=== PATIENT | female | born 1930 | race Caucasian/White ===

== ENCOUNTER → 2017-06-10 | Outpatient (REF) ==
[2017-06-10 10:46] LABS: HEMATOCRIT 26.1 % (36.0-47.0); HEMOGLOBIN 7.9 g/dl (12.0-15.5); MEAN CORPUSCULAR HEMOGLOBIN 26.2 pg (27.0-33.0); MEAN CORPUSCULAR HGB CONC 30.3 g/dl (32.0-36.5); MEAN CORPUSCULAR VOLUME 86.7 fl (80.0-96.0); PLATELET COUNT, AUTOMATED 300 10^3/uL (150-450); RED BLOOD COUNT 3.01 10^6/uL (4.00-5.40); RED CELL DISTRIBUTION WIDTH 18.6 % (11.5-14.5); WHITE BLOOD COUNT 7.8 10^3/uL (4.0-10.0)
[2017-06-10 17:54] LABS: FERRITIN 361 NG/ML (8-252); IRON (FE) 40 UG/DL (50-170); PERCENT SATURATION 13.3 % (13.2-45.0); TOTAL IRON BINDING CAPACITY 300 UG/DL (250-450)
== END ==
DX: D64.9 Anemia, unspecified (principal)

== ENCOUNTER 2017-06-13 09:21 | Outpatient (REF) ==
[2017-06-14 13:38] LABS: HEMOGLOBIN 8.9 g/dl (12.0-15.5); MEAN CORPUSCULAR HEMOGLOBIN 26.2 pg (27.0-33.0); MEAN CORPUSCULAR HGB CONC 29.7 g/dl (32.0-36.5); MEAN CORPUSCULAR VOLUME 88.2 fl (80.0-96.0); PLATELET COUNT, AUTOMATED 327 10^3/uL (150-450); RED CELL DISTRIBUTION WIDTH 19.9 % (11.5-14.5); WHITE BLOOD COUNT 7.8 10^3/uL (4.0-10.0)
== END 2017-06-14 ==
DX: D64.9 Anemia, unspecified (principal)

== ENCOUNTER → 2017-07-05 | Outpatient (REF) ==
[2017-07-05 09:22] LABS: HEMATOCRIT 29.3 % (36.0-47.0); HEMOGLOBIN 8.9 g/dl (12.0-15.5); MEAN CORPUSCULAR HGB CONC 30.4 g/dl (32.0-36.5); MEAN CORPUSCULAR VOLUME 88.8 fl (80.0-96.0); PLATELET COUNT, AUTOMATED 231 10^3/uL (150-450); RED CELL DISTRIBUTION WIDTH 19.6 % (11.5-14.5); WHITE BLOOD COUNT 5.4 10^3/uL (4.0-10.0)
[2017-07-05 10:12] LABS: ANION GAP 6 MEQ/L (8-16); BLOOD UREA NITROGEN 18 MG/DL (7-18); CALCIUM LEVEL 9.8 MG/DL (8.8-10.2); CARBON DIOXIDE LEVEL 31 MEQ/L (21-32); CHLORIDE LEVEL 107 MEQ/L (98-107); CREATININE FOR GFR 1.08 MG/DL (0.55-1.30); GLOMERULAR FILTRATION RATE 51.5 (>32); GLUCOSE, FASTING 85 MG/DL (70-100); POTASSIUM SERUM 3.4 MEQ/L (3.5-5.1); SODIUM LEVEL 144 MEQ/L (136-145)
== END ==
DX: D64.9 Anemia, unspecified (principal)

== ENCOUNTER 2017-07-12 10:31 | Inpatient (IN) | payer MEDICARE, BC, OTHER ==
[2017-07-12] MEDS: amLODIPine 10 MG TAB PO (09:00)
[2017-07-12] MEDS: IPRATROPIUM 0.5MG/ALBUTEROL 2.5MG INH SOL UD 3ML (DUONEB)(J7620) NEB (10:58)
[2017-07-12] MEDS: ALBUTEROL SULFATE 2.5 MG/0.5 ML INH NEB SOLN INH (10:58)
[2017-07-12 11:25] LABS: BASO % 0.5 % (0.0-1.0); EOS # 0.1 10^3/uL (0.0-0.50); EOS % 1.9 % (0.0-3.0); HEMATOCRIT 28.6 % (36.0-47.0); HEMOGLOBIN 8.8 g/dl (12.0-15.5); IMMATURE GRANULOCYTE % 0.5 % (0-3.0); LYMPH % 34.4 % (24.0-44.0); MEAN CORPUSCULAR HEMOGLOBIN 26.7 pg (27.0-33.0); MEAN CORPUSCULAR HGB CONC 30.8 g/dl (32.0-36.5); MEAN CORPUSCULAR VOLUME 86.9 fl (80.0-96.0); MONO # 0.4 10^3/uL (0.0-0.8); MONO % 6.2 % (0.0-5.0); NEUTROPHILS # 3.3 10^3/uL (1.8-7.7); NEUTROPHILS % 56.5 % (36.0-66.0); PLATELET COUNT, AUTOMATED 241 10^3/uL (150-450); RED BLOOD COUNT 3.29 10^6/uL (4.00-5.40); WHITE BLOOD COUNT 5.8 10^3/uL (4.0-10.0)
[2017-07-12 12:00] LABS: ALBUMIN/GLOBULIN RATIO 0.67 (1.00-1.93); ALKALINE PHOSPHATASE 105 U/L (45-117); ALT/SGPT 16 U/L (12-78); ANION GAP 6 MEQ/L (8-16); AST/SGOT 26 U/L (7-37); BILIRUBIN,DIRECT < 0.1 MG/DL (0.0-0.2); BILIRUBIN,TOTAL 0.3 MG/DL (0.2-1.0); BLOOD UREA NITROGEN 18 MG/DL (7-18); CALCIUM LEVEL 9.4 MG/DL (8.8-10.2); CARBON DIOXIDE LEVEL 27 MEQ/L (21-32); CHLORIDE LEVEL 109 MEQ/L (98-107); CPK CREATINE PHOSPHOKINASE 20 U/L (26-192); FREE T4 0.98 NG/DL (0.76-1.46); GLOMERULAR FILTRATION RATE 50.4 (>32); GLUCOSE, FASTING 126 MG/DL (70-100); LIPASE 165 U/L (73-393); POTASSIUM SERUM 3.4 MEQ/L (3.5-5.1); SODIUM LEVEL 142 MEQ/L (136-145); TOTAL PROTEIN 7.5 GM/DL (6.4-8.2); TROPONIN I < 0.02 NG/ML (< 0.10)
[2017-07-12 12:06] LABS: CK-MB VALUE MASS < 1.0 NG/ML (<3.6); NT-PRO BNP 2228 PG/ML (<450)
[2017-07-12] MEDS: LevoFLOXacin IV 750 MG in APPROPRIATE DILUENT 1 EA IV (14:06)
[2017-07-12] MEDS: FUROSEMIDE 20 MG/2 ML VIAL (J1940) IV (14:14)
[2017-07-12] MEDS ORDERED: MOM 30ML SUSPENSION UDC PO (14:45)
[2017-07-12] MEDS ORDERED: FLEET ENEMA PR (14:45)
[2017-07-12] MEDS ORDERED: BISACODYL 10 MG SUPP PR (14:45)
[2017-07-12] MEDS ORDERED: ACETAMINOPHEN 325 MG TAB PO (14:45)
[2017-07-12 16:43] LABS: ESTIMATED AVERAGE GLUCOSE 82 MG/DL (60-110); HEMOGLOBIN A1c 4.5 %
[2017-07-12] MEDS: HEPARIN SOD (PORCINE) 5000 UNITS/ML VIAL SC ×2 (16:53→22:51)
[2017-07-12] MEDS: ALLOPURINOL 300 MG TAB PO (16:54)
[2017-07-12] MEDS: POTASSIUM CHLORIDE 10 MEQ SR TABLET PO (16:54)
[2017-07-12] MEDS: LISINOPRIL 40 MG TAB PO (16:54)
[2017-07-12] MEDS: DULoxetine 30 MG CAP (CYMBALTA) PO (16:55)
[2017-07-12] MEDS: VITAMIN D 1,000 INTERNATIONAL UNITS TABLET PO (16:55)
[2017-07-12] MEDS: ASPIRIN 81 MG ENTERIC TAB PO (20:43)
[2017-07-12] MEDS: OMEPRAZOLE 20 MG CAP PO (20:43)
[2017-07-12] MEDS: METOPROLOL SUCC *XL* 25MG TAB (TopROL *XL*) PO (20:44)
[2017-07-12] MEDS: POLYVINYL ALCOHOL OPHTH SOLN 15 ML(LIQUITEARS) OU (20:50)
[2017-07-12] MEDS: LATANOPROST 0.005% OPHTH SOLN 2.5 ML OU (20:50)
[2017-07-13] MEDS: FUROSEMIDE 40 MG/4 ML VIAL (J1940) IV ×3 (00:11→16:09)
[2017-07-13 05:25] LABS: HEMATOCRIT 29.4 % (36.0-47.0); HEMOGLOBIN 8.8 g/dl (12.0-15.5); MEAN CORPUSCULAR HEMOGLOBIN 26.1 pg (27.0-33.0); MEAN CORPUSCULAR HGB CONC 29.9 g/dl (32.0-36.5); MEAN CORPUSCULAR VOLUME 87.2 fl (80.0-96.0); PLATELET COUNT, AUTOMATED 221 10^3/uL (150-450); RED BLOOD COUNT 3.37 10^6/uL (4.00-5.40); WHITE BLOOD COUNT 6.2 10^3/uL (4.0-10.0)
[2017-07-13 05:46] LABS: ANION GAP 5 MEQ/L (8-16); BLOOD UREA NITROGEN 23 MG/DL (7-18); CALCIUM LEVEL 9.7 MG/DL (8.8-10.2); CARBON DIOXIDE LEVEL 32 MEQ/L (21-32); CHLORIDE LEVEL 107 MEQ/L (98-107); GLOMERULAR FILTRATION RATE 41.5 (>32); GLUCOSE, FASTING 91 MG/DL (70-100); MAGNESIUM LEVEL 1.7 MG/DL (1.8-2.4); POTASSIUM SERUM 3.9 MEQ/L (3.5-5.1); SODIUM LEVEL 144 MEQ/L (136-145)
[2017-07-13 05:50] LABS: FERRITIN 48 NG/ML (8-252); IRON (FE) 26 UG/DL (50-170); PERCENT SATURATION 7.6 % (13.2-45.0); TOTAL IRON BINDING CAPACITY 343 UG/DL (250-450)
[2017-07-13] MEDS: HEPARIN SOD (PORCINE) 5000 UNITS/ML VIAL SC ×3 (05:50→22:05)
[2017-07-13] MEDS: ASPIRIN 81 MG ENTERIC TAB PO ×2 (08:13→22:03)
[2017-07-13] MEDS: VITAMIN D 1,000 INTERNATIONAL UNITS TABLET PO (08:13)
[2017-07-13] MEDS: amLODIPine 10 MG TAB PO (08:13)
[2017-07-13] MEDS: DULoxetine 30 MG CAP (CYMBALTA) PO (08:13)
[2017-07-13] MEDS: LISINOPRIL 40 MG TAB PO (08:13)
[2017-07-13] MEDS: METOPROLOL SUCC *XL* 25MG TAB (TopROL *XL*) PO ×2 (08:13→22:05)
[2017-07-13] MEDS: ALLOPURINOL 300 MG TAB PO (08:14)
[2017-07-13] MEDS: POLYVINYL ALCOHOL OPHTH SOLN 15 ML(LIQUITEARS) OU ×2 (08:14→22:05)
[2017-07-13 08:58] LABS: FOLATE 8.6 NG/ML (>5.4)
[2017-07-13] MEDS ORDERED: FUROSEMIDE 40 MG TAB PO (09:00)
[2017-07-13 09:03] LABS: VITAMIN B12 LEVEL 305 PG/ML (247-911)
[2017-07-13] MEDS: TUBERCULIN PPD 5 UNITS/0.1 ML ID (16:00)
[2017-07-13] MEDS: MAG SULF 1GM/100ML (MAG RUN) 1 GM in APPROPRIATE DILUENT 1 EA IV ×2 (17:23→18:26)
[2017-07-13] MEDS: OMEPRAZOLE 20 MG CAP PO (22:04)
[2017-07-13] MEDS: LATANOPROST 0.005% OPHTH SOLN 2.5 ML OU (22:05)
[2017-07-14] MEDS: FUROSEMIDE 40 MG/4 ML VIAL (J1940) IV ×2 (01:17→12:49)
[2017-07-14 05:53] LABS: HEMATOCRIT 30.8 % (36.0-47.0); HEMOGLOBIN 9.4 g/dl (12.0-15.5); MEAN CORPUSCULAR HEMOGLOBIN 26.6 pg (27.0-33.0); MEAN CORPUSCULAR HGB CONC 30.5 g/dl (32.0-36.5); PLATELET COUNT, AUTOMATED 211 10^3/uL (150-450); RED BLOOD COUNT 3.54 10^6/uL (4.00-5.40); RED CELL DISTRIBUTION WIDTH 18.7 % (11.5-14.5); WHITE BLOOD COUNT 5.2 10^3/uL (4.0-10.0)
[2017-07-14 06:16] LABS: ANION GAP 5 MEQ/L (8-16); BLOOD UREA NITROGEN 27 MG/DL (7-18); CALCIUM LEVEL 9.8 MG/DL (8.8-10.2); CARBON DIOXIDE LEVEL 31 MEQ/L (21-32); CHLORIDE LEVEL 105 MEQ/L (98-107); CREATININE FOR GFR 1.33 MG/DL (0.55-1.30); GLOMERULAR FILTRATION RATE 40.5 (>32); GLUCOSE, FASTING 90 MG/DL (70-100); MAGNESIUM LEVEL 2.4 MG/DL (1.8-2.4); POTASSIUM SERUM 3.4 MEQ/L (3.5-5.1); SODIUM LEVEL 141 MEQ/L (136-145)
[2017-07-14] MEDS: HEPARIN SOD (PORCINE) 5000 UNITS/ML VIAL SC ×3 (06:50→21:35)
[2017-07-14] MEDS: POLYVINYL ALCOHOL OPHTH SOLN 15 ML(LIQUITEARS) OU ×2 (09:00→21:23)
[2017-07-14] MEDS: ALLOPURINOL 300 MG TAB PO (09:08)
[2017-07-14] MEDS: VITAMIN D 1,000 INTERNATIONAL UNITS TABLET PO (09:08)
[2017-07-14] MEDS: LISINOPRIL 40 MG TAB PO (09:08)
[2017-07-14] MEDS: DULoxetine 30 MG CAP (CYMBALTA) PO (09:09)
[2017-07-14] MEDS: ASPIRIN 81 MG ENTERIC TAB PO ×2 (09:09→21:22)
[2017-07-14] MEDS: amLODIPine 10 MG TAB PO (09:11)
[2017-07-14] MEDS: POTASSIUM CHLORIDE 10 MEQ SR TABLET PO (09:11)
[2017-07-14] MEDS: METOPROLOL SUCC *XL* 25MG TAB (TopROL *XL*) PO ×2 (09:12→21:23)
[2017-07-14] MEDS ORDERED: diphenhydrAMINE 25 MG CAP PO (18:30)
[2017-07-14] MEDS: OMEPRAZOLE 20 MG CAP PO (21:22)
[2017-07-14] MEDS: LATANOPROST 0.005% OPHTH SOLN 2.5 ML OU (21:23)
[2017-07-15 05:55] LABS: HEMATOCRIT 27.8 % (36.0-47.0); HEMOGLOBIN 8.4 g/dl (12.0-15.5); MEAN CORPUSCULAR HEMOGLOBIN 26.4 pg (27.0-33.0); MEAN CORPUSCULAR HGB CONC 30.2 g/dl (32.0-36.5); MEAN CORPUSCULAR VOLUME 87.4 fl (80.0-96.0); PLATELET COUNT, AUTOMATED 206 10^3/uL (150-450); RED BLOOD COUNT 3.18 10^6/uL (4.00-5.40); RED CELL DISTRIBUTION WIDTH 18.8 % (11.5-14.5); WHITE BLOOD COUNT 5.5 10^3/uL (4.0-10.0)
[2017-07-15 06:14] LABS: ANION GAP 5 MEQ/L (8-16); BLOOD UREA NITROGEN 30 MG/DL (7-18); CALCIUM LEVEL 9.3 MG/DL (8.8-10.2); CARBON DIOXIDE LEVEL 30 MEQ/L (21-32); CHLORIDE LEVEL 106 MEQ/L (98-107); CREATININE FOR GFR 1.42 MG/DL (0.55-1.30); GLOMERULAR FILTRATION RATE 37.5 (>32); GLUCOSE, FASTING 94 MG/DL (70-100); MAGNESIUM LEVEL 2.4 MG/DL (1.8-2.4); POTASSIUM SERUM 4.1 MEQ/L (3.5-5.1); SODIUM LEVEL 141 MEQ/L (136-145)
[2017-07-15] MEDS: HEPARIN SOD (PORCINE) 5000 UNITS/ML VIAL SC ×3 (06:46→21:53)
[2017-07-15] MEDS: ASPIRIN 81 MG ENTERIC TAB PO ×2 (09:00→21:51)
[2017-07-15] MEDS: VITAMIN D 1,000 INTERNATIONAL UNITS TABLET PO (09:30)
[2017-07-15] MEDS: amLODIPine 10 MG TAB PO (09:31)
[2017-07-15] MEDS: LISINOPRIL 40 MG TAB PO (09:31)
[2017-07-15] MEDS: POLYVINYL ALCOHOL OPHTH SOLN 15 ML(LIQUITEARS) OU ×2 (09:31→21:52)
[2017-07-15] MEDS: ALLOPURINOL 300 MG TAB PO (09:31)
[2017-07-15] MEDS: DULoxetine 30 MG CAP (CYMBALTA) PO (09:31)
[2017-07-15] MEDS: METOPROLOL SUCC *XL* 25MG TAB (TopROL *XL*) PO ×2 (09:31→21:52)
[2017-07-15] MEDS ORDERED: fentaNYL 100 MCG/2 ML INJECTION (J3010) As Ordered (14:19)
[2017-07-15] MEDS ORDERED: PROPOFOL 200 MG/20 ML VIAL As Ordered ×2 (14:20→15:15)
[2017-07-15] MEDS ORDERED: LIDOCAINE 2% INJ 100 MG/5 ML SDV (FOR ANES.) As Ordered (14:20)
[2017-07-15] MEDS: LIDOCAINE VISCOUS 2% SOLN 15ML UDC As Ordered (14:57)
[2017-07-15] MEDS ORDERED: PPD DOCUMENTATION ENTRY MISC XX (16:00)
[2017-07-15] MEDS ORDERED: ONDANSETRON 4MG/2ML VIAL (J2405) IV (16:00)
[2017-07-15] MEDS: LR 1,000 ML IV (16:00)
[2017-07-15] MEDS: OMEPRAZOLE 20 MG CAP PO (21:51)
[2017-07-15] MEDS: LATANOPROST 0.005% OPHTH SOLN 2.5 ML OU (21:52)
[2017-07-15] MEDS: NS 1,000 ML IV (23:29)
[2017-07-16 05:04] LABS: HEMATOCRIT 26.3 % (36.0-47.0); HEMOGLOBIN 7.8 g/dl (12.0-15.5); MEAN CORPUSCULAR HEMOGLOBIN 26.3 pg (27.0-33.0); MEAN CORPUSCULAR HGB CONC 29.7 g/dl (32.0-36.5); MEAN CORPUSCULAR VOLUME 88.6 fl (80.0-96.0); PLATELET COUNT, AUTOMATED 179 10^3/uL (150-450); RED BLOOD COUNT 2.97 10^6/uL (4.00-5.40); RED CELL DISTRIBUTION WIDTH 19.1 % (11.5-14.5); WHITE BLOOD COUNT 5.3 10^3/uL (4.0-10.0)
[2017-07-16 05:26] LABS: ANION GAP 4 MEQ/L (8-16); BLOOD UREA NITROGEN 28 MG/DL (7-18); CALCIUM LEVEL 9.4 MG/DL (8.8-10.2); CARBON DIOXIDE LEVEL 31 MEQ/L (21-32); CHLORIDE LEVEL 109 MEQ/L (98-107); CREATININE FOR GFR 1.21 MG/DL (0.55-1.30); GLOMERULAR FILTRATION RATE 45.1 (>32); GLUCOSE, FASTING 103 MG/DL (70-100); MAGNESIUM LEVEL 2.4 MG/DL (1.8-2.4); POTASSIUM SERUM 3.8 MEQ/L (3.5-5.1); SODIUM LEVEL 144 MEQ/L (136-145)
[2017-07-16] MEDS: HEPARIN SOD (PORCINE) 5000 UNITS/ML VIAL SC ×3 (07:09→20:47)
[2017-07-16] MEDS: amLODIPine 10 MG TAB PO (09:38)
[2017-07-16] MEDS: DULoxetine 30 MG CAP (CYMBALTA) PO (09:38)
[2017-07-16] MEDS: METOPROLOL SUCC *XL* 25MG TAB (TopROL *XL*) PO ×2 (09:38→20:39)
[2017-07-16] MEDS: VITAMIN D 1,000 INTERNATIONAL UNITS TABLET PO (09:38)
[2017-07-16] MEDS: ASPIRIN 81 MG ENTERIC TAB PO ×2 (09:38→20:41)
[2017-07-16] MEDS: POLYVINYL ALCOHOL OPHTH SOLN 15 ML(LIQUITEARS) OU ×2 (09:39→20:41)
[2017-07-16 12:38] LABS: HEMATOCRIT 27.4 % (36.0-47.0); HEMOGLOBIN 8.3 g/dl (12.0-15.5)
[2017-07-16] MEDS: OMEPRAZOLE 20 MG CAP PO (20:39)
[2017-07-16] MEDS: LATANOPROST 0.005% OPHTH SOLN 2.5 ML OU (20:41)
[2017-07-17] MEDS: HEPARIN SOD (PORCINE) 5000 UNITS/ML VIAL SC ×3 (06:00→22:00)
[2017-07-17 06:48] LABS: HEMATOCRIT 27.4 % (36.0-47.0); HEMOGLOBIN 8.3 g/dl (12.0-15.5); MEAN CORPUSCULAR HEMOGLOBIN 26.7 pg (27.0-33.0); MEAN CORPUSCULAR HGB CONC 30.3 g/dl (32.0-36.5); MEAN CORPUSCULAR VOLUME 88.1 fl (80.0-96.0); PLATELET COUNT, AUTOMATED 195 10^3/uL (150-450); RED BLOOD COUNT 3.11 10^6/uL (4.00-5.40); RED CELL DISTRIBUTION WIDTH 18.8 % (11.5-14.5); WHITE BLOOD COUNT 5.5 10^3/uL (4.0-10.0)
[2017-07-17 07:11] LABS: ANION GAP 7 MEQ/L (8-16); BLOOD UREA NITROGEN 20 MG/DL (7-18); CALCIUM LEVEL 9.2 MG/DL (8.8-10.2); CARBON DIOXIDE LEVEL 28 MEQ/L (21-32); CHLORIDE LEVEL 108 MEQ/L (98-107); CREATININE FOR GFR 1.02 MG/DL (0.55-1.30); GLUCOSE, FASTING 98 MG/DL (70-100); MAGNESIUM LEVEL 2.3 MG/DL (1.8-2.4); POTASSIUM SERUM 3.8 MEQ/L (3.5-5.1); SODIUM LEVEL 143 MEQ/L (136-145)
[2017-07-17] MEDS: DULoxetine 30 MG CAP (CYMBALTA) PO (09:03)
[2017-07-17] MEDS: ASPIRIN 81 MG ENTERIC TAB PO ×2 (09:03→22:15)
[2017-07-17] MEDS: VITAMIN D 1,000 INTERNATIONAL UNITS TABLET PO (09:03)
[2017-07-17] MEDS: POLYVINYL ALCOHOL OPHTH SOLN 15 ML(LIQUITEARS) OU ×2 (09:03→22:15)
[2017-07-17] MEDS: METOPROLOL SUCC *XL* 25MG TAB (TopROL *XL*) PO ×2 (09:04→22:15)
[2017-07-17] MEDS: amLODIPine 10 MG TAB PO (09:04)
[2017-07-17] MEDS: ALLOPURINOL 300 MG TAB PO (09:06)
[2017-07-17] MEDS: LISINOPRIL 40 MG TAB PO (09:06)
[2017-07-17] MEDS: ALPRAZolam 0.25 MG TAB PO (12:15)
[2017-07-17] MEDS: LATANOPROST 0.005% OPHTH SOLN 2.5 ML OU (22:15)
[2017-07-17] MEDS: OMEPRAZOLE 20 MG CAP PO (22:15)
[2017-07-18] MEDS: HEPARIN SOD (PORCINE) 5000 UNITS/ML VIAL SC ×2 (05:24→13:24)
[2017-07-18 06:27] LABS: HEMATOCRIT 27.1 % (36.0-47.0); HEMOGLOBIN 8.1 g/dl (12.0-15.5); MEAN CORPUSCULAR HEMOGLOBIN 26.4 pg (27.0-33.0); MEAN CORPUSCULAR HGB CONC 29.9 g/dl (32.0-36.5); MEAN CORPUSCULAR VOLUME 88.3 fl (80.0-96.0); PLATELET COUNT, AUTOMATED 182 10^3/uL (150-450); RED BLOOD COUNT 3.07 10^6/uL (4.00-5.40)
[2017-07-18 06:43] LABS: ANION GAP 4 MEQ/L (8-16); BLOOD UREA NITROGEN 16 MG/DL (7-18); CALCIUM LEVEL 9.3 MG/DL (8.8-10.2); CARBON DIOXIDE LEVEL 30 MEQ/L (21-32); CHLORIDE LEVEL 107 MEQ/L (98-107); CREATININE FOR GFR 1.04 MG/DL (0.55-1.30); GLOMERULAR FILTRATION RATE 53.7 (>32); GLUCOSE, FASTING 100 MG/DL (70-100); MAGNESIUM LEVEL 2.4 MG/DL (1.8-2.4); POTASSIUM SERUM 3.8 MEQ/L (3.5-5.1); SODIUM LEVEL 141 MEQ/L (136-145)
[2017-07-18] MEDS: METOPROLOL SUCC *XL* 25MG TAB (TopROL *XL*) PO (09:27)
[2017-07-18] MEDS: amLODIPine 10 MG TAB PO (09:27)
[2017-07-18] MEDS: ALLOPURINOL 300 MG TAB PO (09:27)
[2017-07-18] MEDS: LISINOPRIL 40 MG TAB PO (09:27)
[2017-07-18] MEDS: DULoxetine 30 MG CAP (CYMBALTA) PO (09:27)
[2017-07-18] MEDS: VITAMIN D 1,000 INTERNATIONAL UNITS TABLET PO (09:27)
[2017-07-18] MEDS: ASPIRIN 81 MG ENTERIC TAB PO (09:28)
[2017-07-18] MEDS: POLYVINYL ALCOHOL OPHTH SOLN 15 ML(LIQUITEARS) OU (09:28)
== END 2017-07-18 14:30 | disposition home or self-care (01) | DRG 204 ==
LOC: M MS5PR 07-16 16:45 → M ED 10:31 → M ED INP 14:33 → M PCU 15:56
PROC: B24BZZ4 Ultrasonography of Heart with Aorta, Transesophageal (ICD-10-PCS; principal; 2017-07-15 14:54)
DX: R06.03 Acute respiratory distress (principal); E87.70 Fluid overload, unspecified; I70.0 Atherosclerosis of aorta; Z66 Do not resuscitate; E83.42 Hypomagnesemia; D50.9 Iron deficiency anemia, unspecified; E87.6 Hypokalemia; M10.9 Gout, unspecified; R73.03 Prediabetes; R29.6 Repeated falls; F41.9 Anxiety disorder, unspecified; F32.9 Major depressive disorder, single episode, unspecified; I10 Essential (primary) hypertension; Z96.642 Presence of left artificial hip joint; Z95.5 Presence of coronary angioplasty implant and graft; Z87.891 Personal history of nicotine dependence; Z79.82 Long term (current) use of aspirin; Z79.899 Other long term (current) drug therapy; Z88.0 Allergy status to penicillin; Z88.5 Allergy status to narcotic agent

== ENCOUNTER → 2017-07-12 | Outpatient (REF) ==
[2017-07-12 09:23] LABS: HEMATOCRIT 28.2 % (36.0-47.0); HEMOGLOBIN 8.6 g/dl (12.0-15.5); MEAN CORPUSCULAR HEMOGLOBIN 26.6 pg (27.0-33.0); MEAN CORPUSCULAR HGB CONC 30.5 g/dl (32.0-36.5); MEAN CORPUSCULAR VOLUME 87.3 fl (80.0-96.0); PLATELET COUNT, AUTOMATED 213 10^3/uL (150-450); RED BLOOD COUNT 3.23 10^6/uL (4.00-5.40); RED CELL DISTRIBUTION WIDTH 19.1 % (11.5-14.5); WHITE BLOOD COUNT 5.7 10^3/uL (4.0-10.0)
[2017-07-12 09:59] LABS: ANION GAP 6 MEQ/L (8-16); BLOOD UREA NITROGEN 18 MG/DL (7-18); CALCIUM LEVEL 9.4 MG/DL (8.8-10.2); CARBON DIOXIDE LEVEL 28 MEQ/L (21-32); CHLORIDE LEVEL 108 MEQ/L (98-107); CREATININE FOR GFR 1.05 MG/DL (0.55-1.30); GLOMERULAR FILTRATION RATE 53.2 (>32); GLUCOSE, FASTING 86 MG/DL (70-100); NT-PRO BNP 2006 PG/ML (<450); POTASSIUM SERUM 3.7 MEQ/L (3.5-5.1); SODIUM LEVEL 142 MEQ/L (136-145)
== END ==
DX: I10 Essential (primary) hypertension (principal)